=== PATIENT | male | born 1970 | race Two or more races ===

== ENCOUNTER 2024-08-31 22:58 | Inpatient (IN) | payer MEDICAID, OTHER, SELFPAY ==
--- NOTE | ~2024-08-31 | CT_ITS ---
EXAMINATION: CT HEAD WITHOUT CONTRAST CLINICAL INFORMATION: Altered mental status. COMPARISON: None available. TECHNIQUE: Contiguous axial imaging was performed from the skull base to vertex without intravenous administration of contrast. This CT examination was performed using dose optimization techniques as appropriate, variously including the following: *Automated exposure control *Adjustment of mA and/or kV according to patient size (this includes techniques or standardized protocols for targeted exams where dose is matched to indication/reason for exam; i.e. extremities or head) *Use of iterative reconstruction technique DLP: 630 mGy-cm FINDINGS: The lateral, third and fourth ventricles are normally outlined. The cortical sulci and basal cisterns are normally outlined as well. There is no acute territorial defect, hemorrhage or midline shift. The extra-axial spaces are unremarkable. Calvarium/scalp: Intact. Maxillofacial sinuses and mastoids: Clear as visualized. CT/CT head/brain wo IV con IMPRESSION: No acute intracranial pathology. Electronically signed by: Quintin Ulloa MD 09/01/2024 03:18 AM EDT
[2024-08-31 23:21] VITALS: BP 123/74; PULSE 60; RESP 16; TEMP 36.6; O2SAT 100; BMI 24.2
--- NOTE | 2024-08-31 23:24 | PC.NURSE ---
pt changed over by security to hospital attire, belongings locked up. pt does not answer si/hi questions when asked states he has been seeing demons by the tracks in [place]. pt denies etoh/drug use. called to bedside as pt attempts to get oob to leave. during MD bower pt sitting in chair at bedside refuses to get back in stretcher. per MD, charge authorizer notified for 1:1 sitter for pt safety at this time.
--- NOTE | 2024-08-31 23:30 | ECG_ITS ---
Test Reason : TOX EVAL Blood Pressure : / mmHG Vent. Rate : 057 BPM Atrial Rate : 057 BPM P-R Int : 150 ms QRS Dur : 096 ms QT Int : 422 ms P-R-T Axes : 081 030 070 degrees QTc Int : 410 ms Sinus bradycardia Otherwise normal ECG No previous ECGs available Referred By: Randy Granda Electronically Signed By:DULCE MARIA MG
[2024-08-31 23:40] LABS: MANUAL DIFF FLAG NO
[2024-08-31 23:41] LABS: Basophils Percent Auto 0.7 % (0-2); Eosinophils Absolute Auto 0.2 X10*3/uL (0.0-0.4); Eosinophils Percent Auto 3.5 % (0-4); Hematocrit 37.7 % (42.0-52.0); Hemoglobin 12.5 g/dl (14.0-18.0); Imm Gran Abs Auto 0.01 X10*3/uL (0.00-0.03); Imm Gran Pct Auto 0.2 % (0.0-0.4); Lymphocytes Absolute Auto 1.5 X10*3/uL (1.2-4.9); Lymphocytes Percent Auto 32.7 % (20-40); Mean Corpuscular HGB Conc 33.2 g/dl (31.0-36.0); Mean Corpuscular Hemoglobin 30.6 pg (27.0-33.0); Mean Corpuscular Volume 92.2 fL (80.0-98.0); Mean Platelet Volume 8.7 fL (9.4-12.4); Monocytes Absolute Auto 0.5 X10*3/uL (0.1-1.2); Monocytes Percent Auto 11.4 % (2-11); Neutrophils Absolute Auto 2.3 x10*3/uL (2.0-8.3); Neutrophils Percent Auto 51.5 % (45-73); Platelet Count 263 X10*3/uL (160-400); Red Blood Count 4.09 X10*6/uL (4.60-5.80); Red Cell Distribution Width 13.2 % (11.0-16.0); White Blood Count 4.6 X10*3/uL (4.8-10.8)
--- NOTE | 2024-08-31 23:41 | PC.NURSE ---
pt is more cooperative now and answering questions. allowed blood draw, now obtaining ekg. 1:1 sitter at bedside. pt reports hes been SI without plan since 2017 after his ex passed. says the thoughts are intermittent. reports had some thoughts in AM but denies at this time. security took belongings to [facility].
--- NOTE | 2024-08-31 23:55 | ED.GENADULT ---
HPI - General Adult General Chief complaint: Behavioral Concerns Stated complaint: SI, states demons are chasing him Time Seen by Provider: 08/31/24 23:16 History of Present Illness ED Provider: Kalee KUMARI narrative: 54-year-old male brought in by police after being found in the streets naked. Patient states that he was seeing demons and he is also endorsing SI. Patient currently has no physical complaints. He is not a great historian however he does confirm seeing demons and having suicidal thoughts. He has no physical complaints denying head pain, neck pain, chest pain, shortness of breath, abdominal pain, nausea, vomiting, urinary symptoms Related Data Allergies Allergy/AdvReac Type Severity Reaction Status Date / Time Unable to Assess Allergy Verified 08/31/24 23:23 Review of Systems Review of Systems: Patient endorses SI and visual hallucination Yes all other systems are reviewed and are negative [facility] Social History Social History Smoked in Last 30 Days: No Use of substances other than those prescribed or required for medical reasons: No Advance Directives: No Advance Directives Information Provided: Yes Physical Exam ED Vital Signs: Vital Signs - 24 hr 08/31/24 23:21 Temperature 97.8 F Pulse Rate 60 Respiratory Rate 16 Blood Pressure 123/74 Pulse Oximetry 100 Oxygen Delivery Method Room Air BMI result Body Mass Index 24.2 Head normocephalic atraumatic with no midline C-spine tenderness to palpation Lungs clear to auscultation bilaterally; normal S1-S2 regular rate and rhythm Abdomen is soft nontender nondistended Medications Administered Discontinued Medications Generic Name Dose Route Start Last Admin Trade Name Freq PRN Reason Stop Dose Admin Haloperidol 1 mg 08/31/24 23:31 09/01/24 00:17 Haloperidol 1 Mg Tablet PO 08/31/24 23:32 Not Given ONCE ONE Medical Decision Making Medical Decision Making [facility] Narrative: This is a 54-year-old male presenting for SI hallucinations. I am concerned for the following; psychiatric illness, intoxication - labs and imaging studies ordered - labs notable for no white count and H&H within normal limits, normal electrolytes, normal creatinine, normal LFTs - consult care team placed - I reviewed the patient's head imaging and did not appreciate a large head bleed however official radiology interpretation is pending - he is still a patient in the emergency department and I signed him out to the night provider Lab Data 08/31/24 23:36 08/31/24 23:36 Labs: Lab Results 08/31/24 Range/Units 23:36 WBC 4.6 L (4.8-10.8) X10*3/uL RBC 4.09 L (4.60-5.80) X10*6/uL Hgb 12.5 L (14.0-18.0) g/dl Hct 37.7 L (42.0-52.0) % MCV 92.2 (80.0-98.0) fL MCH 30.6 (27.0-33.0) pg MCHC 33.2 (31.0-36.0) g/dl RDW 13.2 (11.0-16.0) % Plt Count 263 (160-400) X10*3/uL MPV 8.7 L (9.4-12.4) fL Immature Gran % (Auto) 0.2 (0.0-0.4) % Neut % (Auto) 51.5 (45-73) % Lymph % (Auto) 32.7 (20-40) % [place] % (Auto) 11.4 H (2-11) % Eos % (Auto) 3.5 (0-4) % Baso % (Auto) 0.7 (0-2) % Lymph # (Auto) 1.5 (1.2-4.9) X10*3/uL [place] # (Auto) 0.5 (0.1-1.2) X10*3/uL Eos # (Auto) 0.2 (0.0-0.4) X10*3/uL Baso # (Auto) 0.0 (0.0-0.2) X10*3/uL Abs Immat Gran (auto) 0.01 (0.00-0.03) X10*3/uL Absolute Neuts (auto) 2.3 (2.0-8.3) x10*3/uL Absolute Nucleated RBC 0.000 (0.0-0.012) X10*3/uL Nucleated RBC % (auto) 0.0 (0.0-0.2) /100WBC Sodium 140 (135-145) mmol/L Potassium 3.9 (3.3-5.1) mmol/L Chloride 105 (96-108) mmol/L Carbon Dioxide 27 (22-29) mmol/L Anion Gap 12 (12-20) BUN 18 H (9-16) mg/dL Creatinine 0.82 (0.5-1.4) mg/dL Estim Creat Clear Calc 79.5 Estimated GFR > 60 Random Glucose 90 (60-115) mg/dL Calcium 9.3 (8.4-10.2) mg/dL Total Bilirubin 0.3 (0.0-1.0) mg/dL AST 43 H (5-37) U/L ALT 23 (0-40) U/L Alkaline Phosphatase 84 (39-117) U/L Total Protein 7.2 (6.5-8.0) g/dL Albumin 4.3 (3.5-5.0) g/dL Ethyl Alcohol < 10 mg/dL Discharge Plan Discharge Clinical Impression: Suicide ideation, Hallucination Print Language: Tristanian
[2024-09-01] LABS: Alanine Aminotransferase 23 U/L (0-40); Albumin Level 4.3 g/dL (3.5-5.0); Alkaline Phosphatase 84 U/L (39-117); Anion Gap 12 (12-20); Aspartate Amino Transferase 43 U/L (5-37); Bilirubin Total 0.3 mg/dL (0.0-1.0); Blood Urea Nitrogen 18 mg/dL (9-16); Calcium 9.3 mg/dL (8.4-10.2); Carbon Dioxide 27 mmol/L (22-29); Chloride 105 mmol/L (96-108); Creatinine Clr Calc Pharmacy 79.5; Estimated Glomerular Filt Rate > 60; Ethanol < 10 mg/dL; Glucose Random 90 mg/dL (60-115); Potassium 3.9 mmol/L (3.3-5.1); Sodium 140 mmol/L (135-145); Total Protein 7.2 g/dL (6.5-8.0)
[2024-09-01 02:26] LABS: Troponin-I High Sensitivity 2.7 ng/L (<3.5-35.0)
[2024-09-01 02:29] VITALS: BP 101/56; PULSE 75; RESP 16; O2SAT 97
[2024-09-01 06:46] LABS: Amphetamine Screen Urine Not Detected (Not Detect); Barbiturates, Urine Not Detected (Not Detect); Benzodiazepines Screen Urine Not Detected (Not Detect); Buprenorphine Scr Not Detected (Not Detect); Cannabinoid Screen Urine POSITIVE (Not Detect); Cocaine Screen Urine POSITIVE (Not Detect); Fentanyl, urine Not Detected (Not Detect); Methadone Screen, Urine Not Detected (Not Detect); Opiate Screen Urine Not Detected (Not Detect); Oxycodone Screen Urine Not Detected (Not Detect); Phencyclidine Screen Urine Not Detected (Not Detect)
--- NOTE | 2024-09-01 11:42 | MHC.CARE ---
pt seen by CARE team, he will be a respite/ACCS bed search and ED provider Dr. Marylin Summers has been notified and in in agreement with disposition. Referral faxed to [facility] as they report they have male bed, [facility] was called and referral was activated and is currently under review.
--- NOTE | 2024-09-01 14:09 | MHC.CARE ---
If patient is unable to secure ACCS bed then MSU should be competed for a possible bump up to [facility].
--- NOTE | 2024-09-01 15:06 | MHC.CARE ---
Update: Pt will be bump up to [facility], ED provider Dr. Summers notified.
[2024-09-01 15:11] VITALS: BP 98/61; PULSE 67; RESP 18; TEMP 37.3; O2SAT 97
[2024-09-01 16:17] LABS: Appearance Urine Clear; Color Urine Dark Yellow; Glucose Urine UA Negative (Negative); Leukocyte Esterase Urine Negative (Negative); Nitrite Urine Negative (Negative); PH 5.5 (5.0-9.0); Specific Gravity - Urine >= 1.030 (1.005-1.025); Urine Blood Negative (Negative); Urine Ketones Trace mg/dL (Negative); Urine Protein Trace mg/dL (Neg-Trace)
--- NOTE | 2024-09-01 19:53 | PHA.MEDREC ---
Addendum entered by Low Kemp RPh 09/01/24 20:26: MED REC CHECKED BY [facility] Original Note: Pharmacy Consult ? Medication Reconciliation Pharmacy reviewed med rec done by nursing. Nurse put No Known Home Meds and looking at claims, no medications were found.
[2024-09-01 20:00] VITALS: BP 108/68; PULSE 76; RESP 16; TEMP 36.4; O2SAT 96
[2024-09-01 22:18] VITALS: BMI 24.2
[2024-09-01] MEDS: hydrOXYzine HCL 25 MG TABLET PO (22:21)
[2024-09-01] MEDS: traZODone HCL 50 MG TABLET PO (22:21)
--- NOTE | 2024-09-02 00:03 | PC.ADMIT ---
Lino is a 54-year-old male who was brought in by police to the POD after being found in the streets naked with only his shoes on. Lino stated that he was seeing demons and remembers taking his clothes off and running. He is A/O x 3, admitted to [facility] on a CV for safety, medication management and stabilization. His discharge goal is to secure housing /snf, [facility] providers and medication to treat depression, I'm always depressed. No medical diagnosis identified, history of broken right femur as a teen, diagnosis include unspecified depressive D/O and cocaine use D/O, Tox screen positive for Cocaine and THC. He denies SI/HI/AVH, gait is steady, no scheduled HS meds, no physical complaints. Given tour of unit, provided with snacks/fluid, admission completed, placed on 15 min unit safety observation.
[2024-09-02 08:37] VITALS: BP 93/51; PULSE 72; RESP 16; TEMP 37.1; O2SAT 97
--- NOTE | 2024-09-02 09:01 | P.HPPS_ITS ---
HPI Date of Service: 09/02/24 Chief Complaint: VH HPI Narrative: per CARE team sathish pt DAGOBERTO after being found wandering the streets wearing only his shoes. pt reported to police he had seen demons and they took his clothing. pt also endorsing SI. from [place] but had been living in [place] until hitchhiking back about 2 months ago, has been homeless and unsheltered since. by the time he was interviewed by CARE team he was denying SI or AVH and did not present with any psychotic Sx. on interview with MD, pt was calm and pleasant. he denied psych Sx aside from depression, asked for medication for depression. R/B of SSRIs discussed, pt agreed to start on zoloft. would like to return to [place]. Hx re cocaine use not c/w Hx taken by CARE team. Past Psychiatric History: hosps: denies SA: denies SIB: denies HIB: denies outpt Tx: denies any Hx Medical Evaluation Reviewed: Yes PMFSH Family History: denies Social History: born in [place]. had been living in [place] until 2 months ago, when he returned. he has been homeless in [place], panhandling for money. he wants to return to [place], where his is buried and his daughters live. gets ABT. completed 10th grade, got his GED later. 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 Substance History: denies use of tobacco, alcohol, stimulants, opioids, benzos. endorses daily cannabis use. despite POS utox for cocaine, denies cocaine use, saying they must have spray my weed [with cocaine]. per CARE team sathish pt reported sniffing cocaine 5 days [employer]. Trauma History: denies Diagnostics Vital Signs (24Hr): Vital Signs - 24 hr 09/01/24 15:11 09/01/24 20:00 09/02/24 08:37 Temperature 99.1 F 97.6 F 98.8 F Pulse Rate 67 76 72 Respiratory Rate 18 16 16 Blood Pressure 98/61 108/68 93/51 L Pulse Oximetry 97 96 97 Oxygen Delivery Method Room Air Room Air Room Air BMI result Body Mass Index 24.2 Labs 08/31/24 23:36 08/31/24 23:36 Labs: Laboratory Results - last 48 hr 1009/01/24 09/01/24 23:36 02:01 06:23 WBC 4.6 L RBC 4.09 L Hgb 12.5 L Hct 37.7 L MCV 92.2 MCH 30.6 MCHC 33.2 RDW 13.2 Plt Count 263 MPV 8.7 L Immature Gran % (Auto) 0.2 Neut % (Auto) 51.5 Lymph % (Auto) 32.7 [place] % (Auto) 11.4 H Eos % (Auto) 3.5 Baso % (Auto) 0.7 Lymph # (Auto) 1.5 [place] # (Auto) 0.5 Eos # (Auto) 0.2 Baso # (Auto) 0.0 Abs Immat Gran (auto) 0.01 Absolute Neuts (auto) 2.3 Absolute Nucleated RBC 0.000 Nucleated RBC % (auto) 0.0 Sodium 140 Potassium 3.9 Chloride 105 Carbon Dioxide 27 Anion Gap 12 BUN 18 H Creatinine 0.82 Estim Creat Clear Calc 79.5 Estimated GFR > 60 Random Glucose 90 Calcium 9.3 Total Bilirubin 0.3 AST 43 H ALT 23 Alkaline Phosphatase 84 Troponin I High Sens 2.7 Total Protein 7.2 Albumin 4.3 Urine Color Urine Appearance Urine pH Ur Specific [place] Urine Protein Urine Glucose (UA) Urine Ketones Urine Blood Urine Nitrite Ur Leukocyte Esterase Urine Opiates Screen Not Detected Ur Buprenorphine Scrn Not Detected Ur Oxycodone Screen Not Detected Urine Methadone Screen Not Detected Urine Fentanyl Screen Not Detected Ur Barbiturates Screen Not Detected Ur Phencyclidine Scrn Not Detected Ur Amphetamines Screen Not Detected U Benzodiazepines Scrn Not Detected Urine Cocaine Screen POSITIVE H U Marijuana (THC) Screen POSITIVE H Ethyl Alcohol < 10 09/01/24 15:33 WBC RBC Hgb Hct MCV MCH MCHC RDW Plt Count MPV Immature Gran % (Auto) Neut % (Auto) Lymph % (Auto) [place] % (Auto) Eos % (Auto) Baso % (Auto) Lymph # (Auto) [place] # (Auto) Eos # (Auto) Baso # (Auto) Abs Immat Gran (auto) Absolute Neuts (auto) Absolute Nucleated RBC Nucleated RBC % (auto) Sodium Potassium Chloride Carbon Dioxide Anion Gap BUN Creatinine Estim Creat Clear Calc Estimated GFR Random Glucose Calcium Total Bilirubin AST ALT Alkaline Phosphatase Troponin I High Sens Total Protein Albumin Urine Color Dark Yellow Urine Appearance Clear Urine pH 5.5 Ur Specific [place] >= 1.030 H Urine Protein Trace Urine Glucose (UA) Negative Urine Ketones Trace Urine Blood Negative Urine Nitrite Negative Ur Leukocyte Esterase Negative Urine Opiates Screen Ur Buprenorphine Scrn Ur Oxycodone Screen Urine Methadone Screen Urine Fentanyl Screen Ur Barbiturates Screen Ur Phencyclidine Scrn Ur Amphetamines Screen U Benzodiazepines Scrn Urine Cocaine Screen U Marijuana (THC) Screen Ethyl Alcohol Imaging Radiology Impressions: ITS Impressions Head CT 09/01/24 01:40 IMPRESSION: No acute intracranial pathology. Electronically signed by: Quintin Ulloa MD 09/01/2024 03:18 AM EDT Meds/Allergies Meds Home Medications ?Medication ?Instructions ?Recorded ?Confirmed ?Type No Known Home Meds 09/01/24 09/01/24 History Allergies Allergies Allergy/AdvReac Type Severity Reaction Status Date / Time Unable to Assess Allergy Verified 08/31/24 23:23 Mental Status Exam Mental Status Exam Narrative: adequately dressed and groomed. cooperative. speech dysarthric, normal rate, amount, loudness, tone, latency. thoughts linear and logical. affect constricted, normo-intense, non-labile. mood pretty good. denies SI/SIBI/HI/AVH. Assessment & Plan Assessment & Plan (1) Cannabis use disorder: Status: Acute Code(s): F12.90 - Cannabis use, unspecified, uncomplicated (2) Cocaine use disorder: Status: Acute Code(s): F14.10 - Cocaine abuse, uncomplicated (3) Substance-induced psychotic disorder: Status: Acute Code(s): F19.959 - Other psychoactive substance use, unspecified with psychoactive substance-induced psychotic disorder, unspecified Plan psychosis resolved, SI resolved. c/o depression. start zoloft 50 mg daily. Patient educated on: diagnosis, medication risk/benefits and substance abuse Reason for continued inpatient stay Substantial Risk for: inability to function Statement Statement: I have reviewed the history and physical and performed a pertinent examination on my patient. No changes have occurred unless specified. If the History and Physical was not performed prior to admission, the Hospitalist's service will be consulted for completing the admission physical. Time Spent With Patient Time: Total time managing care of this patient today __55__ minutes.
[2024-09-02 09:14] LABS: Estimated Average Glucose 126 mg/dL; Hemoglobin A1C 131.7014 umol/L; Total Hemoglobin (HGBA1C) 3117.4381 umol/L
[2024-09-02 10:16] LABS: Cholesterol 178 mg/dL (<200); HDL Cholesterol 75 mg/dL (>40); LDL Cholesterol Calculated 90 mg/dL (<100); Triglycerides 66 mg/dL (<150)
[2024-09-02 10:22] LABS: Free T4 (Free Thyroxine) 1.05 ng/dL (0.71-1.85); Thyroid Stimulating Hormone 0.55 uIU/mL (0.32-4.0)
[2024-09-02 10:27] LABS: Vitamin B12 417 pg/mL (200-900)
[2024-09-02] MEDS: Sertraline HCL 50 MG TABLET PO (14:47)
[2024-09-02 20:00] VITALS: BP 151/60; PULSE 75; RESP 16; TEMP 37.3; O2SAT 99
[2024-09-02] MEDS: traZODone HCL 50 MG TABLET PO ×2 (20:03→22:27)
[2024-09-02] MEDS: hydrOXYzine HCL 25 MG TABLET PO (20:03)
[2024-09-03 08:06] VITALS: BP 148/65; PULSE 87; RESP 16; TEMP 36.6; O2SAT 98
--- NOTE | 2024-09-03 08:51 | P.PNPSI_ITS ---
Subjective Subjective Date of Service: 09/03/24 Reason For Visit: VH Interim History: Pt seen, reviewed with team. Tolerating Sertraline at this time. Present in [facility], participating in activities. Denies current concerns today. Presents well engaged. Medication Compliance: Yes Side effects from medications: No Attending Groups: Yes Review of Systems Acute medical concerns: No Medical Review of Systems: unchanged Review of Systems Review of Systems Yes all other systems are reviewed and are negative (denies) Mental Status Exam Mental Status Exam Narrative: Alert, oriented, well engaged, working on a project in [facility] (puzzle). Speech clear with soft tone, normal rate, rhythm. Denies SI/HI/AH/VH. No sx of psychosis or rylan noted. Hopeful with Sertraline initiation he reports. Diagnostics Vital Signs (24Hr): Vital Signs - 24 hr 09/02/24 20:00 09/03/24 08:06 Temperature 99.1 F 97.8 F Pulse Rate 75 87 Respiratory Rate 16 16 Blood Pressure 151/60 H 148/65 H Pulse Oximetry 99 98 Oxygen Delivery Method Room Air Room Air BMI result Body Mass Index 24.2 Labs 08/31/24 23:36 08/31/24 23:36 Labs: Laboratory Results - last 48 hr 09/01/24 09/02/24 15:33 08:34 Estimat Average Glucose 126 Hemoglobin A1c % 6.0 Triglycerides 66 Cholesterol 178 LDL Cholesterol, Calc 90 HDL Cholesterol 75 Vitamin B12 417 Folate 8.0 TSH 0.55 Free T4 1.05 Urine Color Dark Yellow Urine Appearance Clear Urine pH 5.5 Ur Specific [place] >= 1.030 H Urine Protein Trace Urine Glucose (UA) Negative Urine Ketones Trace Urine Blood Negative Urine Nitrite Negative Ur Leukocyte Esterase Negative Imaging Radiology Impressions: ITS Impressions Head CT 09/01/24 01:40 IMPRESSION: No acute intracranial pathology. Electronically signed by: Quintin Ulloa MD 09/01/2024 03:18 AM EDT Medications Medications Current Medications Acetaminophen (Acetaminophen 325 Mg Tablet) 650 mg PO Q6H PRN PRN Reason: Headache/Pain Mild Scale (1-3) Al Hydroxide/Mg Hydroxide (Magnesium Hydrox/Alum Hydrox 30 Ml Oral.Susp) 30 ml PO Q6H PRN PRN Reason: Heartburn/Nausea Hydroxyzine HCl (Hydroxyzine Hcl 25 Mg Tablet) 25 mg PO Q6H PRN PRN Reason: Anxiety Last Admin: 09/02/24 20:03 Dose: 25 mg Magnesium Hydroxide (Milk Of Magnesia 30 Ml Oral.Susp) 30 ml PO DAILY PRN PRN Reason: Constipation Nicotine Polacrilex (Nicotine Polacrilex 2 Mg Gum) 4 mg BUCCAL Q2H PRN PRN Reason: Nicotine Cravings Sertraline HCl (Sertraline Hcl 50 Mg Tablet) 50 mg PO DAILY STEVE Last Admin: 09/02/24 14:47 Dose: 50 mg Trazodone HCl (Trazodone Hcl 50 Mg Tablet) 50 mg PO BEDTIME MRX1 PRN PRN Reason: Insomnia Last Admin: 09/02/24 22:27 Dose: 50 mg Allergies Allergies Allergy/AdvReac Type Severity Reaction Status Date / Time Unable to Assess Allergy Verified 08/31/24 23:23 Assessment & Plan Assessment & Plan (1) Cannabis use disorder: Status: Acute Code(s): F12.90 - Cannabis use, unspecified, uncomplicated (2) Cocaine use disorder: Status: Acute Code(s): F14.10 - Cocaine abuse, uncomplicated (3) Substance-induced psychotic disorder: Status: Acute Code(s): F19.959 - Other psychoactive substance use, unspecified with psychoactive substance-induced psychotic disorder, unspecified Plan psychosis resolved, SI resolved. c/o depression. start zoloft 50 mg daily. 09/03/24: Continue tx Pt with hypertensive readings, may need medication. Continue to monitor. Reason for continued inpatient stay Substantial Risk for: rapid decompensation Time Spent With Patient Time: Total time managing care of this patient today ____ minutes.
[2024-09-03] MEDS: Sertraline HCL 50 MG TABLET PO (09:08)
[2024-09-03 20:00] VITALS: BP 124/65; PULSE 76; RESP 16; TEMP 36.9; O2SAT 97
[2024-09-03] MEDS: traZODone HCL 50 MG TABLET PO (21:10)
[2024-09-04 08:19] VITALS: BP 128/59; PULSE 69; RESP 16; TEMP 36.5; O2SAT 97
--- NOTE | 2024-09-04 09:09 | HO.PSYCHPN ---
Subjective Subjective Date of Service: 09/04/24 Reason For Visit: VH Subjective Notes: Conditional Voluntary Interim History: Met with pt, reviewed with team. Pt tells team Sertraline caused adverse effects-after one dose he had no relief and was still depressed. Also reported vertigo, nausea. Discussed with pt time needed to assess for efficacy. He was more receptive to education this a.m. He continues to report wanting an antidepressant, but believes Sertraline is not for him. He approached tw later in the a.m. and asked that we initiate another agent to help me stay on a good track . Team reports pt was able to sleep for eight hours. Pt denies SI/HI/AH/VH Side effects from medications: Yes Attending Groups: Intermittent Review of Systems Acute medical concerns: No Medical Review of Systems: unchanged Review of Systems Review of Systems Reported SE pt reports to be resolved this a.m. Mental Status Exam Mental Status Exam Patient Appearance: Disheveled Patient Orientation: Person, Place, Time and Situation Level of Consciousness: Alert Patient Behavior: Talkative and Good Eye Contact Mood Description: Depressed and Apprehensive Affect Description: Apprehensive Patient Cognition Impaired: No Ability to Follow Directions: Good Speech Pattern: Spontaneous Speech Memory Description: Intact Hallucinations: None (denies) Thought Process: Rumination Thought Content: positive for Circumstantial and positive for Perseveration Judgement: Fair Diagnostics Vital Signs (24Hr): Vital Signs - 24 hr 09/03/24 20:00 09/04/24 08:19 Temperature 98.5 F 97.7 F Pulse Rate 76 69 Respiratory Rate 16 16 Blood Pressure 124/65 128/59 L Pulse Oximetry 97 97 Oxygen Delivery Method Room Air Room Air BMI result Body Mass Index 24.2 Labs 08/31/24 23:36 08/31/24 23:36 Labs: Laboratory Results - last 48 hr 09/02/24 08:34 Estimat Average Glucose 126 Hemoglobin A1c % 6.0 Triglycerides 66 Cholesterol 178 LDL Cholesterol, Calc 90 HDL Cholesterol 75 Vitamin B12 417 Folate 8.0 TSH 0.55 Free T4 1.05 Imaging Radiology Impressions: ITS Impressions Head CT 09/01/24 01:40 IMPRESSION: No acute intracranial pathology. Electronically signed by: Quintin Ulloa MD 09/01/2024 03:18 AM EDT Medications Medications Current Medications Acetaminophen (Acetaminophen 325 Mg Tablet) 650 mg PO Q6H PRN PRN Reason: Headache/Pain Mild Scale (1-3) Al Hydroxide/Mg Hydroxide (Magnesium Hydrox/Alum Hydrox 30 Ml Oral.Susp) 30 ml PO Q6H PRN PRN Reason: Heartburn/Nausea Hydroxyzine HCl (Hydroxyzine Hcl 25 Mg Tablet) 25 mg PO Q6H PRN PRN Reason: Anxiety Last Admin: 09/02/24 20:03 Dose: 25 mg Magnesium Hydroxide (Milk Of Magnesia 30 Ml Oral.Susp) 30 ml PO DAILY PRN PRN Reason: Constipation Nicotine Polacrilex (Nicotine Polacrilex 2 Mg Gum) 4 mg BUCCAL Q2H PRN PRN Reason: Nicotine Cravings Sertraline HCl (Sertraline Hcl 50 Mg Tablet) 50 mg PO DAILY STEVE Last Admin: 09/03/24 09:08 Dose: 50 mg Trazodone HCl (Trazodone Hcl 50 Mg Tablet) 50 mg PO BEDTIME MRX1 PRN PRN Reason: Insomnia Last Admin: 09/03/24 21:10 Dose: 50 mg Allergies Allergies Allergy/AdvReac Type Severity Reaction Status Date / Time Unable to Assess Allergy Verified 08/31/24 23:23 Assessment & Plan Assessment & Plan (1) Cannabis use disorder: Status: Acute Code(s): F12.90 - Cannabis use, unspecified, uncomplicated (2) Cocaine use disorder: Status: Acute Code(s): F14.10 - Cocaine abuse, uncomplicated (3) Substance-induced psychotic disorder: Status: Acute Code(s): F19.959 - Other psychoactive substance use, unspecified with psychoactive substance-induced psychotic disorder, unspecified Plan psychosis resolved, SI resolved. c/o depression. start zoloft 50 mg daily. 09/03/24: Continue tx Pt with hypertensive readings, may need medication. Continue to monitor. 09/04/24: DC Sertraline Escitalopram 5 mg a.m. Monitor for increasing sx of psychosis Reason for continued inpatient stay Substantial Risk for: rapid decompensation Time Spent With Patient Time: Total time managing care of this patient today ____ minutes.
[2024-09-04] MEDS: Escitalopram Oxalate 5 MG TABLET PO (11:16)
[2024-09-04 20:00] VITALS: BP 125/70; PULSE 77; RESP 16; TEMP 37.1; O2SAT 95
[2024-09-04] MEDS: traZODone HCL 50 MG TABLET PO (20:15)
[2024-09-05 07:25] VITALS: BP 87/54; PULSE 68; RESP 14; TEMP 36.4; O2SAT 98
[2024-09-05] MEDS: Escitalopram Oxalate 5 MG TABLET PO (08:45)
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
[2024-09-05 20:00] VITALS: BP 136/68; PULSE 85; RESP 16; TEMP 37.1; O2SAT 97
[2024-09-05] MEDS: traZODone HCL 50 MG TABLET PO (20:53)
[2024-09-05] MEDS: hydrOXYzine HCL 25 MG TABLET PO (20:53)
[2024-09-06 08:00] VITALS: BP 126/57; PULSE 92; RESP 16; TEMP 36.7; O2SAT 100
[2024-09-06] MEDS: Escitalopram Oxalate 5 MG TABLET PO (08:55)
== END 2024-09-06 10:30 | disposition home or self-care (01) | DRG 774 ==
LOC: HO.ED 09-01 08:09 → HO.PADLT16 09-01 16:26
PROVIDERS: Admitting Provider Psychiatry & Neurology Psychiatry; Emergency Provider Student in an Organized Health Care Education/Training Program; Visit Provider Psychiatry & Neurology Psychiatry
DX: F19.959 Other psychoactive substance use, unspecified with psychoactive substance-induced psychotic disorder, unspecified (principal); F14.10 Cocaine abuse, uncomplicated; R45.851 Suicidal ideations; F12.90 Cannabis use, unspecified, uncomplicated; Z59.02 Unsheltered homelessness; Z79.899 Other long term (current) drug therapy
CPT/HCPCS: 36415; 70450; 80053; 80061; 80307; 81003; 82607; 82746; 83036; 84439; 84443; 84484; 85025; 93005; 99285; S9485

== ENCOUNTER → 2024-08-31 23:30 | Outpatient (BNV) | payer MEDICAID, SELFPAY | PROVIDERS: Emergency Provider Student in an Organized Health Care Education/Training Program; Visit Provider Internal Medicine | DX: R00.1 Bradycardia, unspecified (principal) | CPT/HCPCS: 93010 ==

== ENCOUNTER → 2024-09-01 16:14 | Outpatient (BNV) | payer OTHER, SELFPAY | PROVIDERS: Admitting Provider Psychiatry & Neurology Psychiatry; Emergency Provider Student in an Organized Health Care Education/Training Program; Visit Provider Psychiatry & Neurology Psychiatry | DX: F14.10 Cocaine abuse, uncomplicated (principal); F19.959 Other psychoactive substance use, unspecified with psychoactive substance-induced psychotic disorder, unspecified; F12.90 Cannabis use, unspecified, uncomplicated | CPT/HCPCS: 99231; 99232; 99233 ==

== ENCOUNTER 2024-09-07 18:38 | Inpatient (IN) | payer MEDICAID, OTHER, SELFPAY ==
[2024-09-07 18:47] VITALS: BP 129/77; PULSE 94; RESP 18; TEMP 37.1; O2SAT 95
--- NOTE | 2024-09-07 18:51 | ECG_ITS ---
Test Reason : assess qt Blood Pressure : / mmHG Vent. Rate : 068 BPM Atrial Rate : 068 BPM P-R Int : 136 ms QRS Dur : 096 ms QT Int : 390 ms P-R-T Axes : 063 026 055 degrees QTc Int : 414 ms Normal sinus rhythm Normal ECG When compared with ECG of 31-AUG-2024 23:34, No significant change was found Referred By: Generic ED Physician Electronically Signed By:Edgar Be
--- NOTE | 2024-09-07 19:02 | PC.NURSE ---
patient just completed changeover, awaiting lab draw, patient ambulates ad cathi on unit. patient appears in no distress able to let his needs be known.
[2024-09-07 19:36] LABS: MANUAL DIFF FLAG NO
[2024-09-07 19:37] LABS: Basophils Percent Auto 0.5 % (0-2); Eosinophils Absolute Auto 0.1 X10*3/uL (0.0-0.4); Eosinophils Percent Auto 1.8 % (0-4); Hematocrit 35.1 % (42.0-52.0); Hemoglobin 11.6 g/dl (14.0-18.0); Imm Gran Abs Auto 0.02 X10*3/uL (0.00-0.03); Imm Gran Pct Auto 0.3 % (0.0-0.4); Lymphocytes Absolute Auto 1.2 X10*3/uL (1.2-4.9); Lymphocytes Percent Auto 19.1 % (20-40); Mean Corpuscular Hemoglobin 30.4 pg (27.0-33.0); Mean Corpuscular Volume 92.1 fL (80.0-98.0); Mean Platelet Volume 8.4 fL (9.4-12.4); Monocytes Absolute Auto 0.7 X10*3/uL (0.1-1.2); Monocytes Percent Auto 11.5 % (2-11); Neutrophils Absolute Auto 4.2 x10*3/uL (2.0-8.3); Neutrophils Percent Auto 66.8 % (45-73); Platelet Count 292 X10*3/uL (160-400); Red Blood Count 3.81 X10*6/uL (4.60-5.80); Red Cell Distribution Width 13.4 % (11.0-16.0); White Blood Count 6.3 X10*3/uL (4.8-10.8)
[2024-09-07 19:39] LABS: Appearance Urine Clear; Color Urine Yellow; Glucose Urine UA Negative (Negative); Leukocyte Esterase Urine Negative (Negative); Nitrite Urine Negative (Negative); PH 5.5 (5.0-9.0); Specific Gravity - Urine 1.025 (1.005-1.025); UMIC TRIGGER UACC YES; Urine Blood Small (1+) (Negative); Urine Ketones Negative (Negative); Urine Protein Negative (Neg-Trace)
[2024-09-07 19:44] LABS: Bacteria Urine None Seen (None Seen); Hyaline Casts Urine 0-2 /LPF (0-2); Squamous Epithelial Cell Urine 0-2 /HPF (0-2); WBC Urine 0-5 /HPF (0-5)
[2024-09-07 19:52] LABS: Ethanol < 10 mg/dL
[2024-09-07 19:54] LABS: Alanine Aminotransferase 44 U/L (0-40); Albumin Level 4.3 g/dL (3.5-5.0); Alkaline Phosphatase 85 U/L (39-117); Anion Gap 13 (12-20); Aspartate Amino Transferase 58 U/L (5-37); Bilirubin Total 0.3 mg/dL (0.0-1.0); Blood Urea Nitrogen 19 mg/dL (9-16); Calcium 9.7 mg/dL (8.4-10.2); Carbon Dioxide 30 mmol/L (22-29); Chloride 101 mmol/L (96-108); Creatinine Clr Calc Pharmacy 24.9; Estimated Glomerular Filt Rate > 60; Glucose Random 96 mg/dL (60-115); Potassium 4.4 mmol/L (3.3-5.1); Sodium 140 mmol/L (135-145); Total Protein 7.3 g/dL (6.5-8.0)
[2024-09-07 20:02] LABS: Amphetamine Screen Urine Not Detected (Not Detect); Barbiturates, Urine Not Detected (Not Detect); Benzodiazepines Screen Urine Not Detected (Not Detect); Buprenorphine Scr Not Detected (Not Detect); Cannabinoid Screen Urine Not Detected (Not Detect); Cocaine Screen Urine POSITIVE (Not Detect); Fentanyl, urine Not Detected (Not Detect); Methadone Screen, Urine Not Detected (Not Detect); Opiate Screen Urine Not Detected (Not Detect); Oxycodone Screen Urine Not Detected (Not Detect); Phencyclidine Screen Urine Not Detected (Not Detect)
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
[2024-09-07 20:55] VITALS: BP 126/70; PULSE 80; RESP 18; TEMP 37; O2SAT 98; BMI 26.6
--- NOTE | 2024-09-07 23:46 | PC.NURSE ---
late entry at 2330 asked provider to continue med rec.
[2024-09-08] MEDS: traZODone HCL 50 MG TABLET PO ×4 (00:50→21:38)
[2024-09-08 06:37] VITALS: BP 103/62; PULSE 68; RESP 16; TEMP 36.7; O2SAT 99
[2024-09-08] MEDS: Escitalopram Oxalate 5 MG TABLET PO (08:55)
--- NOTE | 2024-09-08 12:00 | PM.EVENT ---
Event Note Date of Service: 09/11/24 Event Note: Patient seen in the emergency room had recently been discharged in the context of marijuana cocaine use with recent psychotic episode. Unclear if has had prior psychiatric care he somewhat conflicted regarding this patient reportedly was having intense thoughts to jump off a bridge which he states he still is experiencing appears appropriate to transfer to psychiatry Time Spent With Patient Time: Total time managing care of this patient today ____ minutes.
[2024-09-08 15:48] VITALS: BP 130/66; PULSE 80; RESP 16; TEMP 37.2; O2SAT 98
[2024-09-08 16:23] VITALS: BMI 22.2
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
[2024-09-08 20:00] VITALS: BP 143/78; PULSE 90; RESP 16; TEMP 36.8; O2SAT 98
[2024-09-08] MEDS: hydrOXYzine HCL 25 MG TABLET PO (20:49)
[2024-09-09 07:51] VITALS: BP 112/59; PULSE 79; RESP 16; TEMP 36.8; O2SAT 98
[2024-09-09] MEDS: Escitalopram Oxalate 5 MG TABLET PO (08:12)
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
[2024-09-09 19:52] VITALS: BP 109/67; PULSE 83; RESP 16; TEMP 36.6; O2SAT 97
[2024-09-09] MEDS: traZODone HCL 50 MG TABLET PO ×2 (21:28)
[2024-09-09] MEDS: hydrOXYzine HCL 25 MG TABLET PO (21:28)
[2024-09-10 07:44] VITALS: BP 108/60; PULSE 85; RESP 14; TEMP 36.8; O2SAT 97
[2024-09-10] MEDS: Escitalopram Oxalate 5 MG TABLET PO (08:41)
--- NOTE | 2024-09-10 11:07 | HO.PSYCHPN ---
Subjective Subjective Date of Service: 09/10/24 Reason For Visit: SI Interim History: Patient seen. DANYELLE RN. doing well. No complaints. Medications are helping A LOT He has no side effects. No SI. No disorganized behaviors noted. Review of Systems Review of Systems Yes all other systems are reviewed and are negative Constitutional: Denies fatigue and Denies fever(s) Cardiovascular: Denies chest pain and Denies dyspnea Respiratory: Denies cough and Denies dyspnea Gastrointestinal: Denies nausea Reports system reviewed and no additional complaints, except as documented Psychiatric: Reports as per HPI, Reports anxiety, Reports depression, Denies auditory hallucinations, Denies visual hallucinations, Denies homicidal ideation and Reports suicidal ideation Endocrine: Denies fatigue Mental Status Exam Mental Status Exam Narrative: adequately dressed and groomed. cooperative. speech dysarthric, normal rate, amount, loudness, tone, latency. thoughts linear and illogical. affect constricted, hyper-intense, non-labile. mood happy. denies SI/SIBI/HI/AVH. Diagnostics Vital Signs (24Hr): Vital Signs - 24 hr 09/09/24 19:52 09/10/24 07:44 Temperature 97.8 F 98.2 F Pulse Rate 83 85 Respiratory Rate 16 14 Blood Pressure 109/67 108/60 Pulse Oximetry 97 97 Oxygen Delivery Method Room Air Room Air BMI result Body Mass Index 22.2 Labs 09/07/24 19:29 09/07/24 19:29 Medications Medications Current Medications Acetaminophen (Acetaminophen 325 Mg Tablet) 650 mg PO Q6H PRN PRN Reason: Headache/Pain Mild Scale (1-3) Al Hydroxide/Mg Hydroxide (Magnesium Hydrox/Alum Hydrox 30 Ml Oral.Susp) 30 ml PO Q6H PRN PRN Reason: Heartburn/Nausea Escitalopram Oxalate (Escitalopram Oxalate 5 Mg Tablet) 5 mg PO DAILY STEVE Last Admin: 09/10/24 08:41 Dose: 5 mg Hydroxyzine HCl (Hydroxyzine Hcl 25 Mg Tablet) 25 mg PO Q6H PRN PRN Reason: Anxiety Last Admin: 09/09/24 21:28 Dose: 25 mg Magnesium Hydroxide (Milk Of Magnesia 30 Ml Oral.Susp) 30 ml PO DAILY PRN PRN Reason: Constipation Nicotine Polacrilex (Nicotine Polacrilex 2 Mg Gum) 4 mg BUCCAL Q2H PRN PRN Reason: Nicotine Cravings Trazodone HCl (Trazodone Hcl 50 Mg Tablet) 50 mg PO BEDTIME STEVE Last Admin: 09/09/24 21:28 Dose: 50 mg Trazodone HCl (Trazodone Hcl 50 Mg Tablet) 50 mg PO BEDTIME MRX1 PRN PRN Reason: Insomnia Last Admin: 09/09/24 21:28 Dose: 50 mg Allergies Allergies Allergy/AdvReac Type Severity Reaction Status Date / Time No Known Allergies Allergy Verified 09/07/24 20:57 Assessment & Plan Assessment & Plan (1) Cocaine use disorder: Status: Acute Code(s): F14.10 - Cocaine abuse, uncomplicated (2) Cannabis use disorder: Status: Acute Code(s): F12.90 - Cannabis use, unspecified, uncomplicated (3) Malingering: Status: Acute Code(s): Z76.5 - Malingerer [conscious simulation] Plan 09/09: restart prior meds. stabilize inpatient. coordinate discharge plan more likely to succeed than prior. 09/10: Continue current management and treatment plan. Reason for continued inpatient stay Substantial Risk for: inability to function and rapid decompensation Time Spent With Patient Time: Total time managing care of this patient today ____ minutes.
[2024-09-10 19:47] VITALS: BP 132/69; PULSE 77; RESP 14; TEMP 37.1; O2SAT 97
[2024-09-10] MEDS: hydrOXYzine HCL 25 MG TABLET PO (21:40)
[2024-09-10] MEDS: traZODone HCL 50 MG TABLET PO (21:40)
[2024-09-11 07:59] VITALS: BP 129/58; PULSE 74; RESP 16; TEMP 36.9; O2SAT 97
[2024-09-11] MEDS: Escitalopram Oxalate 5 MG TABLET PO (08:24)
--- NOTE | 2024-09-11 11:49 | HO.PSYCHPN ---
Subjective Subjective Date of Service: 09/11/24 Reason For Visit: SI Interim History: Patient seen. DANYELLE RN. doing well. No complaints. Medications are helpful Got in touch with family and they are buying him a greyhound ticket to [place]. He says he needs a ride to [place] to the bus station. He has no side effects. No SI. No disorganized behaviors noted. Review of Systems Review of Systems Yes all other systems are reviewed and are negative Constitutional: Denies fatigue and Denies fever(s) Cardiovascular: Denies chest pain and Denies dyspnea Respiratory: Denies cough and Denies dyspnea Gastrointestinal: Denies nausea Reports system reviewed and no additional complaints, except as documented Psychiatric: Reports as per HPI, Reports anxiety, Reports depression, Denies auditory hallucinations, Denies visual hallucinations, Denies homicidal ideation and Reports suicidal ideation Endocrine: Denies fatigue Mental Status Exam Mental Status Exam Narrative: adequately dressed and groomed. cooperative. speech dysarthric, normal rate, amount, loudness, tone, latency. thoughts linear and illogical. affect constricted, hyper-intense, non-labile. mood happy. denies SI/SIBI/HI/AVH. Diagnostics Vital Signs (24Hr): Vital Signs - 24 hr 09/10/24 19:47 09/11/24 07:59 Temperature 98.7 F 98.5 F Pulse Rate 77 74 Respiratory Rate 14 16 Blood Pressure 132/69 129/58 L Pulse Oximetry 97 97 Oxygen Delivery Method Room Air Room Air BMI result Body Mass Index 22.2 Labs 09/07/24 19:29 09/07/24 19:29 Medications Medications Current Medications Acetaminophen (Acetaminophen 325 Mg Tablet) 650 mg PO Q6H PRN PRN Reason: Headache/Pain Mild Scale (1-3) Al Hydroxide/Mg Hydroxide (Magnesium Hydrox/Alum Hydrox 30 Ml Oral.Susp) 30 ml PO Q6H PRN PRN Reason: Heartburn/Nausea Escitalopram Oxalate (Escitalopram Oxalate 5 Mg Tablet) 5 mg PO DAILY STEVE Last Admin: 09/11/24 08:24 Dose: 5 mg Hydroxyzine HCl (Hydroxyzine Hcl 25 Mg Tablet) 25 mg PO Q6H PRN PRN Reason: Anxiety Last Admin: 09/10/24 21:40 Dose: 25 mg Magnesium Hydroxide (Milk Of Magnesia 30 Ml Oral.Susp) 30 ml PO DAILY PRN PRN Reason: Constipation Nicotine Polacrilex (Nicotine Polacrilex 2 Mg Gum) 4 mg BUCCAL Q2H PRN PRN Reason: Nicotine Cravings Trazodone HCl (Trazodone Hcl 50 Mg Tablet) 50 mg PO BEDTIME STEVE Last Admin: 09/10/24 21:40 Dose: 50 mg Trazodone HCl (Trazodone Hcl 50 Mg Tablet) 50 mg PO BEDTIME MRX1 PRN PRN Reason: Insomnia Last Admin: 09/09/24 21:28 Dose: 50 mg Allergies Allergies Allergy/AdvReac Type Severity Reaction Status Date / Time No Known Allergies Allergy Verified 09/07/24 20:57 Assessment & Plan Assessment & Plan (1) Cocaine use disorder: Status: Acute Code(s): F14.10 - Cocaine abuse, uncomplicated (2) Cannabis use disorder: Status: Acute Code(s): F12.90 - Cannabis use, unspecified, uncomplicated (3) Malingering: Status: Acute Code(s): Z76.5 - Malingerer [conscious simulation] Plan 09/09: restart prior meds. stabilize inpatient. coordinate discharge plan more likely to succeed than prior. 09/10: Continue current management and treatment plan. 09/11: Continue current management and treatment plan. Reason for continued inpatient stay Substantial Risk for: inability to function and rapid decompensation Time Spent With Patient Time: Total time managing care of this patient today ____ minutes.
[2024-09-11 20:00] VITALS: BP 123/67; PULSE 92; RESP 16; TEMP 36.4; O2SAT 97
[2024-09-11] MEDS: hydrOXYzine HCL 25 MG TABLET PO (21:36)
[2024-09-11] MEDS: traZODone HCL 50 MG TABLET PO (21:36)
[2024-09-12 07:36] VITALS: BP 112/66; PULSE 73; RESP 16; TEMP 36.6; O2SAT 99
[2024-09-12] MEDS: Escitalopram Oxalate 5 MG TABLET PO (08:10)
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
[2024-09-12 12:42] LABS: COVID-19 Test Negative (Negative); IDNOW Serial# 152EDE1D
== END 2024-09-12 15:08 | disposition home or self-care (01) | DRG 861 ==
LOC: HO.ED 21:01 → HO.PADLT16 09-08 12:56
PROVIDERS: Admitting Provider Psychiatry & Neurology Psychiatry; Emergency Provider Student in an Organized Health Care Education/Training Program; Visit Provider Psychiatry & Neurology Psychiatry
DX: Z76.5 Malingerer [conscious simulation] (principal); R45.851 Suicidal ideations; F14.10 Cocaine abuse, uncomplicated; F19.10 Other psychoactive substance abuse, uncomplicated; Z59.02 Unsheltered homelessness; Z20.822 Contact with and (suspected) exposure to COVID-19; Z79.899 Other long term (current) drug therapy
CPT/HCPCS: 36415; 80053; 80307; 81001; 85025; 87635; 93005; 99285; S9485

== ENCOUNTER → 2024-09-07 18:51 | Outpatient (BNV) | payer MEDICAID, SELFPAY | PROVIDERS: Admitting Provider Psychiatry & Neurology Psychiatry; Emergency Provider Student in an Organized Health Care Education/Training Program; Visit Provider Internal Medicine Cardiovascular Disease | DX: R45.851 Suicidal ideations (principal) | CPT/HCPCS: 93010 ==

== ENCOUNTER → 2024-09-08 12:43 | Outpatient (BNV) | payer OTHER, SELFPAY | PROVIDERS: Admitting Provider Psychiatry & Neurology Psychiatry; Emergency Provider Student in an Organized Health Care Education/Training Program; Visit Provider Psychiatry & Neurology Psychiatry | DX: F14.10 Cocaine abuse, uncomplicated (principal); F12.90 Cannabis use, unspecified, uncomplicated; Z76.5 Malingerer [conscious simulation] | CPT/HCPCS: 99231; 99232; 99233 ==